=== PATIENT | female | born 1930 | race Caucasian/White ===

== ENCOUNTER 2017-08-12 12:23 | Inpatient (IN) | payer MEDICARE, OTHER ==
[2017-08-12] MEDS: ONDANSETRON 4 MG INJ IV (13:18)
[2017-08-12 13:37] LABS: ADD MAN DIFF? NO
[2017-08-12 13:40] LABS: ABNORMAL IP MESSAGE 1; BASOPHILS % 0.2 % (0.0-2.0); EOSINOPHILS % 0.5 % (0.0-7.0); HEMATOCRIT 34.6 % (37.0-47.0); HEMOGLOBIN 10.6 g/dl (12.0-16.0); LYMPHOCYTES # 0.5 10^3/ul (0.8-2.9); LYMPHOCYTES % 7.8 % (15.0-51.0); MEAN CORPUSCULAR HGB CONC 30.6 g/dl (32.0-37.0); MEAN CORPUSCULAR VOLUME 94.5 fl (82.0-101.0); MEAN PLATELET VOLUME 12.5 fl (7.4-10.4); MONOCYTE # 0.5 10^3/ul (0.3-0.9); MONOCYTES % 7.2 % (0.0-11.0); NEUTROPHIL # 5.4 10^3/ul (1.6-7.5); NEUTROPHILS % 83.8 % (39.0-77.0); PLATELET COUNT 136 10^3/UL (140-415); POSITIVE DIFF @See below; RED BLOOD COUNT 3.66 10^6/ul (4.20-5.40)
[2017-08-12 13:40] LABS: WHITE BLOOD COUNT 6.4 10^3/ul (4.8-10.8)
[2017-08-12 13:56] LABS: ALANINE AMINOTRANSFERASE 27 IU/L (13-69); ALBUMIN 3.6 g/dl (3.3-4.9); ALBUMIN/GLOBULIN RATIO 0.94; ALKALINE PHOSPHATASE 189 IU/L (42-121); ANION GAP 15 (8-16); ASPARTATE AMINO TRANSFERASE 19 IU/L (15-46); BILIRUBIN,INDIRECT 0.7 mg/dl (0-1.1); BILIRUBIN,TOTAL 0.7 mg/dl (0.2-1.3); BLOOD UREA NITROGEN 26 mg/dl (7-20); CALCIUM 8.8 mg/dl (8.4-10.2); CARBON DIOXIDE 20 mmol/L (21-31); CHLORIDE 110 mmol/L (97-110); GLUCOSE 148 mg/dl (70-220); LIPASE 66 U/L (23-300); SODIUM 139 mmol/L (135-144); TOTAL PROTEIN 7.4 g/dl (6.1-8.1)
[2017-08-12 14:01] LABS: INR 1.16; PT RATIO 1.2
[2017-08-12 14:02] LABS: PARTIAL THROMBOPLASTIN TIME 32.1 Sec (25.0-35.0)
[2017-08-12 14:04] LABS: POTASSIUM 6.3 mmol/L (3.5-5.1)
[2017-08-12] MEDS: NA POLYST SULFON 15 GM/60 ML BTL PO (14:15)
[2017-08-12] MEDS ORDERED: DEXTROSE 50% 50 ML SYRINGE IV (14:30)
[2017-08-12] MEDS: DEXTROSE 50% 50 ML SYRINGE IV (14:58)
[2017-08-12] MEDS: NA BICARBONATE 8.4% 50 ML SYG IV (14:58)
[2017-08-12] MEDS: FUROSEMIDE 40 MG TAB PO (15:00)
[2017-08-12] MEDS: SALMETEROL/FLUTICASONE 250/50 INHA INH ×2 (15:00→21:00)
[2017-08-12] MEDS: LINAGLIPTIN 5 MG TABLET PO (15:00)
[2017-08-12] MEDS: AMLODIPINE 5 MG TAB PO (15:00)
[2017-08-12] MEDS: INSULIN REGULAR, HUMAN 100 UNIT/1 ML 3ML VIAL IVP (15:00)
[2017-08-12] MEDS: ENALAPRIL 2.5 MG TAB PO ×2 (15:00→21:00)
[2017-08-12] MEDS: METOPROLOL (XL) 25 MG TAB PO ×2 (15:00→21:00)
[2017-08-12] MEDS ORDERED: GLUCOSE GEL 15 GRAM TUBE BUCCAL (15:30)
[2017-08-12] MEDS ORDERED: GLUCAGON 1 MG INJ IM (15:30)
[2017-08-12] MEDS ORDERED: GLUCOSE GEL 15 GRAM TUBE PO ×2 (15:30)
[2017-08-12] MEDS: LIDOCAINE 1% (MDV) 10 ML INJ (15:58)
[2017-08-12 16:16] LABS: IRON 29 ug/dl (35-150)
[2017-08-12 16:26] LABS: % IRON SATURATION 13 % SAT (22-52); TOTAL IRON BINDING CAPACITY 229 ug/dl (241-421)
[2017-08-12] MEDS: PANTOPRAZOLE 40 MG INJ IV (16:46)
[2017-08-12] MEDS: CEFTRIAXONE 1 GM/50 ML (PMX) 50 ML IVPB (16:46)
[2017-08-12] MEDS: REPAGLINIDE 2 MG TAB PO (17:01)
[2017-08-12] MEDS ORDERED: ONDANSETRON 4 MG INJ IV (18:00)
[2017-08-12] MEDS ORDERED: ACETAMINOPHEN 325 MG TAB PO (18:00)
[2017-08-12 18:45] LABS: FLD MN% 95.5 %; FLD PMN% 4.5 %; FLD RBC 4000 /uL; FLD WBC 155 /cmm
[2017-08-12 18:51] LABS: FLUID AMYLASE < 30 U/L; FLUID TYPE ABDOMINAL FLUID
[2017-08-12] MEDS: SOD CHLORIDE 0.9% 1,000 ML IV (19:00)
[2017-08-12 19:07] LABS: FLD CLARITY SLIGHTLY HAZY
[2017-08-12 19:07] LABS: FLD TYPE PARACENTHESIS
[2017-08-12 19:08] LABS: FLD COLOR YELLOW
[2017-08-12] MEDS: ISOSORBIDE DINITRATE 20 MG TAB PO (21:00)
[2017-08-12] MEDS: ACCU-CHEK XX (21:44)
[2017-08-12] MEDS: ACETAMINOPHEN 500 MG TAB PO (22:20)
[2017-08-13] MEDS: LEVOTHYROXINE 125 MCG TAB PO (06:39)
[2017-08-13] MEDS: ACCU-CHEK XX ×4 (08:00→21:52)
[2017-08-13] MEDS: SALMETEROL/FLUTICASONE 250/50 INHA INH ×2 (09:00→21:00)
[2017-08-13] MEDS: REPAGLINIDE 2 MG TAB PO ×3 (09:16→17:45)
[2017-08-13] MEDS: METOPROLOL (XL) 25 MG TAB PO (09:17)
[2017-08-13] MEDS: LINAGLIPTIN 5 MG TABLET PO (09:17)
[2017-08-13] MEDS: FUROSEMIDE 40 MG TAB PO (09:18)
[2017-08-13] MEDS: ISOSORBIDE DINITRATE 20 MG TAB PO ×3 (09:18→21:00)
[2017-08-13] MEDS: ENALAPRIL 2.5 MG TAB PO ×2 (09:19→21:00)
[2017-08-13] MEDS: AMLODIPINE 5 MG TAB PO (09:19)
[2017-08-13 09:28] LABS: ADD MAN DIFF? NO
[2017-08-13 09:43] LABS: WHITE BLOOD COUNT 4.5 10^3/ul (4.8-10.8)
[2017-08-13 09:43] LABS: ABNORMAL IP MESSAGE 1; BASOPHILS % 0.2 % (0.0-2.0); EOSINOPHILS % 0.4 % (0.0-7.0); HEMATOCRIT 29.3 % (37.0-47.0); HEMOGLOBIN 9.1 g/dl (12.0-16.0); LYMPHOCYTES # 0.3 10^3/ul (0.8-2.9); LYMPHOCYTES % 6.4 % (15.0-51.0); MEAN CORPUSCULAR HGB CONC 31.1 g/dl (32.0-37.0); MEAN CORPUSCULAR VOLUME 93.3 fl (82.0-101.0); MONOCYTE # 0.3 10^3/ul (0.3-0.9); MONOCYTES % 7.3 % (0.0-11.0); NEUTROPHIL # 3.9 10^3/ul (1.6-7.5); NEUTROPHILS % 85.3 % (39.0-77.0); PLATELET COUNT 102 10^3/UL (140-415); RED BLOOD COUNT 3.14 10^6/ul (4.20-5.40); RED CELL DISTRIBUTION WIDTH 16.4 % (11.5-14.5)
[2017-08-13 09:47] LABS: POSITIVE DIFF @See below
[2017-08-13 11:07] LABS: ADD UMIC YES; UR ASCORBIC ACID NEGATIVE (NEGATIVE); UR BACTERIA MODERATE /HPF (NONE SEEN); UR BILIRUBIN (Dip) NEGATIVE (NEGATIVE); UR BLOOD (Dip) 2+ mg/dL (NEGATIVE); UR CLARITY SLIGHTLY CLOUDY (CLEAR); UR COLOR AMBER (YELLOW); UR GLUCOSE (Dip) NEGATIVE (NEGATIVE); UR GRANULAR CAST FEW /HPF (NONE SEEN); UR KETONES (Dip) NEGATIVE (NEGATIVE); UR LEUKOCYTE ESTERASE (Dip) 2+ Leu/ul (NEGATIVE); UR MUCUS FEW /HPF (NONE SEEN); UR NITRITE (Dip) NEGATIVE (NEGATIVE); UR RBC 6 /HPF (0-5); UR SPECIFIC GRAVITY (Dip) 1.014 (1.003-1.030); UR TOTAL PROTEIN (Dip) 2+ mg/dl (NEGATIVE); UR UROBILINOGEN (Dip) 1+ mg/dL (NEGATIVE); UR WBC 39 /HPF (0-5)
[2017-08-13 11:39] LABS: ANION GAP 13 (8-16); BLOOD UREA NITROGEN 29 mg/dl (7-20); CALCIUM 7.8 mg/dl (8.4-10.2); CARBON DIOXIDE 20 mmol/L (21-31); CHLORIDE 108 mmol/L (97-110); CREATININE 1.43 mg/dl (0.44-1.00); GLUCOSE 92 mg/dl (70-220); SODIUM 135 mmol/L (135-144)
[2017-08-13] MEDS: IBUPROFEN 400 MG TAB PO (12:44)
[2017-08-13] MEDS ORDERED: PIPER-TAZO 3.375 GM IV (PMX) 100 ML IVPB (14:00)
[2017-08-13] MEDS: NA POLYST SULFON 15 GM/60 ML BTL PO (14:23)
[2017-08-13] MEDS: ALBUMIN HUMAN 25% 100 ML IV ×3 (15:32→23:52)
[2017-08-13] MEDS: SOD CHLORIDE 0.9% 500 ML IV (15:34)
[2017-08-13] MEDS: PIPER-TAZO 2.25 GM (PMX) 50 ML IVPB (15:43)
[2017-08-13] MEDS: SOD CHLORIDE 0.9% 1,000 ML IV (16:30)
[2017-08-13] MEDS: VANCOMYCIN 1.5 GM in SOD CHLORIDE 0.9% 250 ML IVPB (16:33)
[2017-08-13] MEDS: NA POLYST SULFON 15 GM/60 ML BTL PR (16:36)
[2017-08-13] MEDS: DEXTROSE 50% 50 ML SYRINGE IV ×2 (17:21→22:00)
[2017-08-13] MEDS ORDERED: VANCOMYCIN IV PER PHARMACY XX (18:00)
[2017-08-13] MEDS: NORepinephrine 8MG/250 ML (PMX 250 ML IV (20:20)
[2017-08-13] MEDS: DIPHENHYDRAMINE 25 MG CAP PO (23:12)
[2017-08-14] MEDS: PIPER-TAZO 2.25 GM (PMX) 50 ML IVPB ×2 (00:25→06:55)
[2017-08-14 06:07] LABS: ABNORMAL IP MESSAGE 1; HEMATOCRIT 29.8 % (37.0-47.0); HEMOGLOBIN 9.2 g/dl (12.0-16.0); MEAN CORPUSCULAR HEMOGLOBIN 28.9 pg (29.0-33.0); MEAN CORPUSCULAR HGB CONC 30.9 g/dl (32.0-37.0); MEAN CORPUSCULAR VOLUME 93.7 fl (82.0-101.0); MEAN PLATELET VOLUME 12.9 fl (7.4-10.4); PLATELET COUNT 97 10^3/UL (140-415); RED BLOOD COUNT 3.18 10^6/ul (4.20-5.40); RED CELL DISTRIBUTION WIDTH 15.9 % (11.5-14.5)
[2017-08-14 06:07] LABS: WHITE BLOOD COUNT 1.8 10^3/ul (4.8-10.8)
[2017-08-14 06:13] LABS: ADD MAN DIFF? YES; POSITIVE DIFF @See below
[2017-08-14 06:14] LABS: PATH REVIEW? YES
[2017-08-14 06:41] LABS: AMMONIA < 9 umol/l (9-30); URIC ACID 6.7 mg/dl (3.1-7.9)
[2017-08-14 06:41] LABS: CREATINE KINASE 61 IU/L (23-200)
[2017-08-14 06:44] LABS: ALANINE AMINOTRANSFERASE 22 IU/L (13-69); ALBUMIN 2.9 g/dl (3.3-4.9); ALBUMIN/GLOBULIN RATIO 0.96; ALKALINE PHOSPHATASE 96 IU/L (42-121); ANION GAP 15 (8-16); ASPARTATE AMINO TRANSFERASE 16 IU/L (15-46); BILIRUBIN,INDIRECT 0.2 mg/dl (0-1.1); BILIRUBIN,TOTAL 0.2 mg/dl (0.2-1.3); BLOOD UREA NITROGEN 32 mg/dl (7-20); CALCIUM 8.1 mg/dl (8.4-10.2); CARBON DIOXIDE 20 mmol/L (21-31); CHLORIDE 110 mmol/L (97-110); CREATININE 1.68 mg/dl (0.44-1.00); GLUCOSE 79 mg/dl (70-220); MAGNESIUM 1.8 mg/dl (1.7-2.5); POTASSIUM 5.8 mmol/L (3.5-5.1); SODIUM 139 mmol/L (135-144); TOTAL PROTEIN 5.9 g/dl (6.1-8.1)
[2017-08-14 06:48] LABS: IRON 26 ug/dl (35-150)
[2017-08-14] MEDS: LEVOTHYROXINE 125 MCG TAB PO (06:55)
[2017-08-14] MEDS: PANTOPRAZOLE (EC) 40 MG TAB PO (06:55)
[2017-08-14 06:58] LABS: % IRON SATURATION 16 % SAT (22-52); TOTAL IRON BINDING CAPACITY 158 ug/dl (241-421)
[2017-08-14] MEDS: REPAGLINIDE 2 MG TAB PO ×4 (07:05→17:05)
[2017-08-14] MEDS: ACCU-CHEK XX ×5 (07:30→20:30)
[2017-08-14 07:35] LABS: ANISOCYTOSIS 1+ (0-0); BAND NEUTROPHILS #M 0.5 10^3/ul (0.0-0.6); BAND NEUTROPHILS % (M) 33 % (0-4); BURR CELLS 2+ (0-0); EOSINOPHILS % (M) 5 % (0-7); GIANT THROMBO% (M) 3 % (0-0); LYMPHOCYTES % (M) 5 % (15-51); MONOCYTE #M 0.1 10^3/ul (0.3-0.9); MONOCYTES % (M) 8 % (0-11); PLATELET ESTIMATE DECREASED; POIKILOCYTOSIS 2+ (0-0); SEG NEUT #M 0.9 10^3/ul (1.6-7.5); SEGMENTED NEUTROPHILS (M) % 49 % (39-77)
[2017-08-14] MEDS: ALBUMIN HUMAN 25% 100 ML IV (08:33)
[2017-08-14] MEDS: ISOSORBIDE DINITRATE 20 MG TAB PO (08:34)
[2017-08-14] MEDS: ENALAPRIL 2.5 MG TAB PO ×2 (08:35→21:00)
[2017-08-14] MEDS: AMLODIPINE 5 MG TAB PO (08:35)
[2017-08-14] MEDS: LINAGLIPTIN 5 MG TABLET PO (08:36)
[2017-08-14] MEDS: FUROSEMIDE 40 MG TAB PO (08:36)
[2017-08-14] MEDS: SALMETEROL/FLUTICASONE 250/50 INHA INH ×2 (09:00→20:30)
[2017-08-14] MEDS: LIDOCAINE 1% (MPF) 5 ML VIAL SC (10:00)
[2017-08-14] MEDS: CEFTRIAXONE 1 GM/50 ML (PMX) 50 ML IVPB (12:57)
[2017-08-14] MEDS: NA POLYST SULFON 15 GM/60 ML BTL PO (12:57)
[2017-08-14 13:52] LABS: SODIUM,URINE RANDOM 39 mmol/L (30-90)
[2017-08-14 13:54] LABS: PROTEIN/CREAT RATIO 0.52 RATIO
[2017-08-14] MEDS: LUBIPROSTONE 24 MCG CAP PO ×2 (14:00→20:29)
[2017-08-14] MEDS ORDERED: VANCOMYCIN 500MG/NS (PMX) 100 ML IVPB (16:30)
[2017-08-14] MEDS: DAPTOMYCIN 335 MG in SOD CHLORIDE 0.9% 100 ML IVPB (16:43)
[2017-08-14] MEDS: SOD FERRIC GLUC COMPLX 125 MG in SOD CHLORIDE 0.9% 100 ML IVPB (18:09)
[2017-08-14] MEDS: MEROPENEM 500MG/50 ML (PMX) 50 ML IVPB (20:29)
[2017-08-15] MEDS ORDERED: VANCOMYCIN 1 GM (PMX) 250 ML IVPB (05:30)
[2017-08-15] MEDS: LEVOTHYROXINE 125 MCG TAB PO (06:42)
[2017-08-15] MEDS: PANTOPRAZOLE (EC) 40 MG TAB PO (06:42)
[2017-08-15] MEDS: ACCU-CHEK XX ×4 (07:05→21:00)
[2017-08-15] MEDS: IBUPROFEN 400 MG TAB PO (08:20)
[2017-08-15 08:43] LABS: ADD MAN DIFF? NO
[2017-08-15 08:45] LABS: ABNORMAL IP MESSAGE 1; BASOPHILS % 0.3 % (0.0-2.0); EOSINOPHILS # 0.2 10^3/ul (0.0-0.5); EOSINOPHILS % 6.8 % (0.0-7.0); HEMATOCRIT 30.5 % (37.0-47.0); HEMOGLOBIN 9.3 g/dl (12.0-16.0); LYMPHOCYTES # 0.4 10^3/ul (0.8-2.9); LYMPHOCYTES % 12.1 % (15.0-51.0); MEAN CORPUSCULAR HEMOGLOBIN 28.2 pg (29.0-33.0); MEAN CORPUSCULAR HGB CONC 30.5 g/dl (32.0-37.0); MEAN CORPUSCULAR VOLUME 92.4 fl (82.0-101.0); MEAN PLATELET VOLUME 13.7 fl (7.4-10.4); MONOCYTE # 0.4 10^3/ul (0.3-0.9); MONOCYTES % 13.7 % (0.0-11.0); NEUTROPHIL # 2.1 10^3/ul (1.6-7.5); NEUTROPHILS % 66.5 % (39.0-77.0); PLATELET COUNT 106 10^3/UL (140-415); RED CELL DISTRIBUTION WIDTH 16.3 % (11.5-14.5)
[2017-08-15 08:45] LABS: WHITE BLOOD COUNT 3.2 10^3/ul (4.8-10.8)
[2017-08-15 08:49] LABS: POSITIVE DIFF @See below
[2017-08-15] MEDS: SALMETEROL/FLUTICASONE 250/50 INHA INH ×2 (09:00→21:00)
[2017-08-15] MEDS: ENALAPRIL 2.5 MG TAB PO ×2 (09:00→21:00)
[2017-08-15 09:02] LABS: ANION GAP 14 (8-16); BLOOD UREA NITROGEN 33 mg/dl (7-20); CALCIUM 8.4 mg/dl (8.4-10.2); CARBON DIOXIDE 19 mmol/L (21-31); CHLORIDE 110 mmol/L (97-110); CREATININE 1.65 mg/dl (0.44-1.00); GLUCOSE 138 mg/dl (70-220); POTASSIUM 5.5 mmol/L (3.5-5.1); SODIUM 137 mmol/L (135-144)
[2017-08-15] MEDS: LUBIPROSTONE 24 MCG CAP PO ×2 (09:46→21:56)
[2017-08-15] MEDS: MEROPENEM 500MG/50 ML (PMX) 50 ML IVPB (09:46)
[2017-08-15] MEDS ORDERED: ERTAPENEM SODIUM 1 GM in SOD CHLORIDE 0.9% 100 ML IVPB (12:00)
[2017-08-15] MEDS: ALBUMIN HUMAN 25% 100 ML IV (15:13)
[2017-08-15] MEDS: ERTAPENEM SODIUM 0.5 GM in SOD CHLORIDE 0.9% 100 ML IVPB (16:10)
[2017-08-15] MEDS: SOD FERRIC GLUC COMPLX 125 MG in SOD CHLORIDE 0.9% 100 ML IVPB (18:05)
[2017-08-15] MEDS: NA POLYST SULFON 15 GM/60 ML BTL PO (18:50)
[2017-08-15] MEDS: AMPICILLIN 1 GM/NS (PMX) 50 ML IVPB (21:58)
[2017-08-16] MEDS: IBUPROFEN 400 MG TAB PO ×2 (00:21→20:53)
[2017-08-16 06:11] LABS: WHITE BLOOD COUNT 1.9 10^3/ul (4.8-10.8)
[2017-08-16 06:11] LABS: ABNORMAL IP MESSAGE 1; HEMATOCRIT 25.6 % (37.0-47.0); HEMOGLOBIN 7.9 g/dl (12.0-16.0); MEAN CORPUSCULAR HEMOGLOBIN 28.3 pg (29.0-33.0); MEAN CORPUSCULAR HGB CONC 30.9 g/dl (32.0-37.0); MEAN CORPUSCULAR VOLUME 91.8 fl (82.0-101.0); MEAN PLATELET VOLUME 13.1 fl (7.4-10.4); PLATELET COUNT 81 10^3/UL (140-415); RED BLOOD COUNT 2.79 10^6/ul (4.20-5.40)
[2017-08-16 06:36] LABS: ALANINE AMINOTRANSFERASE 21 IU/L (13-69); ALBUMIN 2.6 g/dl (3.3-4.9); ALBUMIN/GLOBULIN RATIO 0.86; ALKALINE PHOSPHATASE 109 IU/L (42-121); ANION GAP 13 (8-16); ASPARTATE AMINO TRANSFERASE 13 IU/L (15-46); BLOOD UREA NITROGEN 37 mg/dl (7-20); CALCIUM 8.4 mg/dl (8.4-10.2); CARBON DIOXIDE 18 mmol/L (21-31); CHLORIDE 112 mmol/L (97-110); CREATININE 1.73 mg/dl (0.44-1.00); GLUCOSE 54 mg/dl (70-220); POTASSIUM 5.1 mmol/L (3.5-5.1); SODIUM 138 mmol/L (135-144); TOTAL PROTEIN 5.6 g/dl (6.1-8.1)
[2017-08-16] MEDS: PANTOPRAZOLE (EC) 40 MG TAB PO (06:36)
[2017-08-16] MEDS: LEVOTHYROXINE 125 MCG TAB PO (06:36)
[2017-08-16] MEDS: ACCU-CHEK XX ×4 (06:36→20:56)
[2017-08-16 06:56] LABS: ADD MAN DIFF? YES; POSITIVE DIFF @See below
[2017-08-16] MEDS: ENALAPRIL 2.5 MG TAB PO ×2 (08:56→20:37)
[2017-08-16] MEDS: AMPICILLIN 1 GM/NS (PMX) 50 ML IVPB ×2 (08:56→20:53)
[2017-08-16] MEDS: LUBIPROSTONE 24 MCG CAP PO ×2 (08:56→20:53)
[2017-08-16] MEDS: SALMETEROL/FLUTICASONE 250/50 INHA INH ×2 (08:57→20:37)
[2017-08-16 09:04] LABS: ANISOCYTOSIS 1+ (0-0); BAND NEUTROPHILS #M 0.4 10^3/ul (0.0-0.6); BAND NEUTROPHILS % (M) 23 % (0-4); EOSINOPHILS % (M) 2 % (0-7); GIANT THROMBO% (M) 1 % (0-0); LYMPHOCYTES #M 0.3 10^3/ul (0.8-2.9); LYMPHOCYTES % (M) 17 % (15-51); MICROCYTOSIS 1+ (0-0); MONOCYTE #M 0.1 10^3/ul (0.3-0.9); MONOCYTES % (M) 8 % (0-11); PLATELET ESTIMATE DECREASED; POIKILOCYTOSIS 3+ (0-0); POLYCHROMASIA 2+ (0-0); REACTIVE LYMPHOCYTES% (M) 2 % (0-0); SEG NEUT #M 0.9 10^3/ul (1.6-7.5); SEGMENTED NEUTROPHILS (M) % 48 % (39-77); SMUDGE%M 2 % (0-0)
[2017-08-16] MEDS: ERTAPENEM SODIUM 0.5 GM in SOD CHLORIDE 0.9% 100 ML IVPB (13:04)
[2017-08-16] MEDS ORDERED: SOD CHLORIDE 0.9% 500 ML IV (14:00)
[2017-08-16] MEDS: SOD CHLORIDE 0.9% 500 ML IV (14:30)
[2017-08-16] MEDS: ALBUMIN HUMAN 25% 100 ML IV (14:35)
[2017-08-16] MEDS: SOD FERRIC GLUC COMPLX 125 MG in SOD CHLORIDE 0.9% 100 ML IVPB (18:07)
[2017-08-16] MEDS: FUROSEMIDE 20 MG INJ IV (22:34)
[2017-08-17 05:38] LABS: ADD MAN DIFF? NO
[2017-08-17 05:46] LABS: WHITE BLOOD COUNT 2.8 10^3/ul (4.8-10.8)
[2017-08-17 05:46] LABS: ABNORMAL IP MESSAGE 1; BASOPHILS % 0.4 % (0.0-2.0); EOSINOPHILS # 0.1 10^3/ul (0.0-0.5); EOSINOPHILS % 3.6 % (0.0-7.0); HEMOGLOBIN 7.8 g/dl (12.0-16.0); LYMPHOCYTES # 0.5 10^3/ul (0.8-2.9); LYMPHOCYTES % 16.4 % (15.0-51.0); MEAN CORPUSCULAR HGB CONC 31.2 g/dl (32.0-37.0); MEAN CORPUSCULAR VOLUME 92.9 fl (82.0-101.0); MEAN PLATELET VOLUME 12.1 fl (7.4-10.4); MONOCYTE # 0.2 10^3/ul (0.3-0.9); MONOCYTES % 8.5 % (0.0-11.0); NEUTROPHILS % 70.4 % (39.0-77.0); PLATELET COUNT 85 10^3/UL (140-415); RED BLOOD COUNT 2.69 10^6/ul (4.20-5.40); RED CELL DISTRIBUTION WIDTH 15.9 % (11.5-14.5)
[2017-08-17 05:50] LABS: POSITIVE DIFF @See below
[2017-08-17 06:07] LABS: AMMONIA 22 umol/l (9-30)
[2017-08-17 06:13] LABS: ALANINE AMINOTRANSFERASE 17 IU/L (13-69); ALBUMIN 2.6 g/dl (3.3-4.9); ALBUMIN/GLOBULIN RATIO 0.86; ALKALINE PHOSPHATASE 104 IU/L (42-121); ANION GAP 14 (8-16); ASPARTATE AMINO TRANSFERASE 12 IU/L (15-46); BLOOD UREA NITROGEN 38 mg/dl (7-20); CALCIUM 8.4 mg/dl (8.4-10.2); CARBON DIOXIDE 20 mmol/L (21-31); CHLORIDE 112 mmol/L (97-110); CREATININE 1.58 mg/dl (0.44-1.00); GLUCOSE 71 mg/dl (70-220); IRON 77 ug/dl (35-150); SODIUM 141 mmol/L (135-144); TOTAL PROTEIN 5.6 g/dl (6.1-8.1)
[2017-08-17 06:16] LABS: MAGNESIUM 1.8 mg/dl (1.7-2.5)
[2017-08-17] MEDS: PANTOPRAZOLE (EC) 40 MG TAB PO (06:18)
[2017-08-17] MEDS: LEVOTHYROXINE 125 MCG TAB PO (06:18)
[2017-08-17] MEDS: ACCU-CHEK XX ×4 (06:22→21:00)
[2017-08-17 06:23] LABS: % IRON SATURATION 51 % SAT (22-52); TOTAL IRON BINDING CAPACITY 151 ug/dl (241-421)
[2017-08-17] MEDS: AMPICILLIN 1 GM/NS (PMX) 50 ML IVPB ×2 (08:09→20:58)
[2017-08-17] MEDS: SALMETEROL/FLUTICASONE 250/50 INHA INH ×2 (08:11→22:04)
[2017-08-17] MEDS: LUBIPROSTONE 24 MCG CAP PO ×2 (09:19→22:04)
[2017-08-17] MEDS: ENALAPRIL 2.5 MG TAB PO ×2 (10:00→22:04)
[2017-08-17] MEDS: ERTAPENEM SODIUM 0.5 GM in SOD CHLORIDE 0.9% 100 ML IVPB (13:09)
[2017-08-17] MEDS: SOD FERRIC GLUC COMPLX 125 MG in SOD CHLORIDE 0.9% 100 ML IVPB (17:28)
[2017-08-17] MEDS: NYSTATIN 30 GM POWDER BTL TOP (20:58)
[2017-08-17 21:41] LABS: AHG CROSSMATCH 1 1
[2017-08-18] MEDS: PANTOPRAZOLE (EC) 40 MG TAB PO (05:35)
[2017-08-18] MEDS: LEVOTHYROXINE 125 MCG TAB PO (05:35)
[2017-08-18] MEDS: ACCU-CHEK XX ×4 (07:30→21:00)
[2017-08-18] MEDS: NYSTATIN 30 GM POWDER BTL TOP ×2 (09:00→21:00)
[2017-08-18] MEDS: LUBIPROSTONE 24 MCG CAP PO ×2 (09:00→21:00)
[2017-08-18] MEDS: SALMETEROL/FLUTICASONE 250/50 INHA INH ×2 (09:00→21:49)
[2017-08-18] MEDS: ENALAPRIL 2.5 MG TAB PO ×2 (09:00→21:52)
[2017-08-18] MEDS: AMPICILLIN 1 GM/NS (PMX) 50 ML IVPB ×2 (09:01→21:50)
[2017-08-18] MEDS: LIDOCAINE 1% (MDV) 10 ML INJ (11:24)
[2017-08-18] MEDS: ERTAPENEM SODIUM 0.5 GM in SOD CHLORIDE 0.9% 100 ML IVPB (12:45)
[2017-08-18] MEDS: SOD FERRIC GLUC COMPLX 125 MG in SOD CHLORIDE 0.9% 100 ML IVPB (17:30)
[2017-08-19] MEDS: LEVOTHYROXINE 125 MCG TAB PO (06:11)
[2017-08-19] MEDS: PANTOPRAZOLE (EC) 40 MG TAB PO (06:11)
[2017-08-19] MEDS: ACCU-CHEK XX (08:14)
[2017-08-19] MEDS: ENALAPRIL 2.5 MG TAB PO (09:02)
[2017-08-19] MEDS: LUBIPROSTONE 24 MCG CAP PO (09:02)
[2017-08-19] MEDS: SALMETEROL/FLUTICASONE 250/50 INHA INH (09:02)
[2017-08-19] MEDS: NYSTATIN 30 GM POWDER BTL TOP (09:08)
[2017-08-19] MEDS: AMPICILLIN 1 GM/NS (PMX) 50 ML IVPB (09:08)
[2017-08-19] MEDS ORDERED: INFLUENZA VIRUS VACCINE 0.5 ML SYG IM* (10:00)
== END 2017-08-19 12:45 | disposition home or self-care (01) | DRG 871 ==
LOC: MS4 08-17 14:41 → MS2 18:34 → E/R 12:23 → ICU 08-13 19:40 → REC 08-14 10:59 → MS2 17:38 → ICU 08-14 12:39
PROC: 0W9G3ZX Drainage of Peritoneal Cavity, Percutaneous Approach, Diagnostic (ICD-10-PCS; 2017-08-12)
PROC: 30233N1 Transfusion of Nonautologous Red Blood Cells into Peripheral Vein, Percutaneous Approach (ICD-10-PCS; principal; 2017-08-17)
PROC: 0W9G3ZX Drainage of Peritoneal Cavity, Percutaneous Approach, Diagnostic (ICD-10-PCS; 2017-08-18)
DX: A41.9 Sepsis, unspecified organism (principal); R65.21 Severe sepsis with septic shock; K65.2 Spontaneous bacterial peritonitis; N39.0 Urinary tract infection, site not specified; K76.6 Portal hypertension; R64 Cachexia; I13.0 Hypertensive heart and chronic kidney disease with heart failure and stage 1 through stage 4 chronic kidney disease, or unspecified chronic kidney disease; I50.32 Chronic diastolic (congestive) heart failure; N17.9 Acute kidney failure, unspecified; D61.818 Other pancytopenia; K56.0 Paralytic ileus; E11.649 Type 2 diabetes mellitus with hypoglycemia without coma; R32 Unspecified urinary incontinence; R31.9 Hematuria, unspecified; E66.01 Morbid (severe) obesity due to excess calories; E03.9 Hypothyroidism, unspecified; E78.00 Pure hypercholesterolemia, unspecified; E87.5 Hyperkalemia; E11.21 Type 2 diabetes mellitus with diabetic nephropathy; E11.22 Type 2 diabetes mellitus with diabetic chronic kidney disease; E11.51 Type 2 diabetes mellitus with diabetic peripheral angiopathy without gangrene; D63.1 Anemia in chronic kidney disease; H16.429 Pannus (corneal), unspecified eye; K59.00 Constipation, unspecified; K70.31 Alcoholic cirrhosis of liver with ascites; R15.9 Full incontinence of feces; K21.9 Gastro-esophageal reflux disease without esophagitis; I25.10 Atherosclerotic heart disease of native coronary artery without angina pectoris; I49.5 Sick sinus syndrome; I48.2 Chronic atrial fibrillation; I73.9 Peripheral vascular disease, unspecified; I07.1 Rheumatic tricuspid insufficiency; N18.9 Chronic kidney disease, unspecified; D63.8 Anemia in other chronic diseases classified elsewhere; B96.20 Unspecified Escherichia coli [E. coli] as the cause of diseases classified elsewhere; L89.152 Pressure ulcer of sacral region, stage 2; R41.0 Disorientation, unspecified; R53.81 Other malaise; Z68.32 Body mass index [BMI] 32.0-32.9, adult; Z95.1 Presence of aortocoronary bypass graft; Z95.2 Presence of prosthetic heart valve; Z95.0 Presence of cardiac pacemaker; Z87.11 Personal history of peptic ulcer disease; Z90.49 Acquired absence of other specified parts of digestive tract; R21 Rash and other nonspecific skin eruption; Z98.890 Other specified postprocedural states
CPT/HCPCS: 36415; 36430; 71045; 74176; 76775; 80048; 80053; 81001; 81003; 82042; 82140; 82150; 82550; 82570; 82962; 83540; 83690; 83735; 83986; 84300; 84443; 84560; 85025; 85610; 85730; 86850; 86870; 86900; 86901; 86920; 87040; 87070; 87081; 87086; 87102; 87116; 87118; 89051; 89190; 90686; 96374; 96375; 99217; 99285-25

== ENCOUNTER 2017-11-24 22:05 | Observation (INO) | payer MEDICARE, OTHER ==
[2017-11-24 22:50] LABS: ADD MAN DIFF? NO
[2017-11-24 22:53] LABS: ABNORMAL IP MESSAGE 1; BASOPHILS % 0.3 % (0.0-2.0); EOSINOPHILS # 0.1 10^3/ul (0.0-0.5); EOSINOPHILS % 3.1 % (0.0-7.0); HEMATOCRIT 25.7 % (37.0-47.0); HEMOGLOBIN 7.5 g/dl (12.0-16.0); LYMPHOCYTES # 0.6 10^3/ul (0.8-2.9); LYMPHOCYTES % 14.4 % (15.0-51.0); MEAN CORPUSCULAR HEMOGLOBIN 30.2 pg (29.0-33.0); MEAN CORPUSCULAR HGB CONC 29.2 g/dl (32.0-37.0); MEAN CORPUSCULAR VOLUME 103.6 fl (82.0-101.0); MEAN PLATELET VOLUME 11.8 fl (7.4-10.4); MONOCYTE # 0.3 10^3/ul (0.3-0.9); MONOCYTES % 6.5 % (0.0-11.0); NEUTROPHIL # 2.9 10^3/ul (1.6-7.5); NEUTROPHILS % 75.4 % (39.0-77.0); PLATELET COUNT 117 10^3/UL (140-415); RED BLOOD COUNT 2.48 10^6/ul (4.20-5.40); RED CELL DISTRIBUTION WIDTH 14.7 % (11.5-14.5)
[2017-11-24 22:53] LABS: WHITE BLOOD COUNT 3.8 10^3/ul (4.8-10.8)
[2017-11-24 22:56] LABS: POSITIVE DIFF @See below
[2017-11-24 23:10] LABS: LACTIC ACID 0.8 mmol/L (0.5-2.0)
[2017-11-24 23:12] LABS: ALANINE AMINOTRANSFERASE 23 IU/L (13-69); ALBUMIN 3.4 g/dl (3.3-4.9); ALBUMIN/GLOBULIN RATIO 0.85; ALKALINE PHOSPHATASE 143 IU/L (42-121); ANION GAP 11 (8-16); ASPARTATE AMINO TRANSFERASE 16 IU/L (15-46); BILIRUBIN,INDIRECT 0.2 mg/dl (0-1.1); BILIRUBIN,TOTAL 0.2 mg/dl (0.2-1.3); BLOOD UREA NITROGEN 32 mg/dl (7-20); CALCIUM 8.8 mg/dl (8.4-10.2); CARBON DIOXIDE 16 mmol/L (21-31); CHLORIDE 119 mmol/L (97-110); CREATININE 1.41 mg/dl (0.44-1.00); GLUCOSE 71 mg/dl (70-220); INR 1.15; POTASSIUM 5.9 mmol/L (3.5-5.1); PROTIME 14.9 Sec (11.9-14.9); PT RATIO 1.2; SODIUM 140 mmol/L (135-144); TOTAL PROTEIN 7.4 g/dl (6.1-8.1)
[2017-11-24 23:13] LABS: PARTIAL THROMBOPLASTIN TIME 29.6 Sec (25.0-35.0)
[2017-11-24 23:23] LABS: TROPONIN-I 0.019 ng/ml (0.000-0.120)
[2017-11-25 00:57] LABS: LACTIC ACID 0.6 mmol/L (0.5-2.0)
[2017-11-25 03:27] LABS: ADD UMIC YES; UR ASCORBIC ACID NEGATIVE (NEGATIVE); UR BACTERIA FEW /HPF (NONE SEEN); UR BILIRUBIN (Dip) NEGATIVE (NEGATIVE); UR BLOOD (Dip) 2+ mg/dL (NEGATIVE); UR CLARITY CLEAR (CLEAR); UR COLOR YELLOW (YELLOW); UR GLUCOSE (Dip) NEGATIVE (NEGATIVE); UR KETONES (Dip) NEGATIVE (NEGATIVE); UR LEUKOCYTE ESTERASE (Dip) 1+ Leu/ul (NEGATIVE); UR NITRITE (Dip) NEGATIVE (NEGATIVE); UR RBC 2 /HPF (0-5); UR SPECIFIC GRAVITY (Dip) 1.009 (1.003-1.030); UR SQUAMOUS EPITHELIAL CELL FEW /HPF (FEW); UR TOTAL PROTEIN (Dip) NEGATIVE (NEGATIVE); UR UROBILINOGEN (Dip) NEGATIVE (NEGATIVE); UR WBC 2 /HPF (0-5)
[2017-11-25 06:13] LABS: LACTIC ACID 0.7 mmol/L (0.5-2.0)
[2017-11-25] MEDS ORDERED: ENALAPRIL 2.5 MG TAB PO (14:00)
[2017-11-25] MEDS: LIDOCAINE 1% (MDV) 10 ML INJ (15:01)
[2017-11-25] MEDS: PANTOPRAZOLE 40 MG INJ IV (16:14)
[2017-11-25] MEDS: FUROSEMIDE 20 MG TAB PO (16:15)
[2017-11-25] MEDS: METOPROLOL (XL) 25 MG TAB PO ×2 (16:15→21:00)
[2017-11-25] MEDS: ALBUMIN HUMAN 25% 50 ML IV ×2 (16:19→22:38)
[2017-11-25] MEDS: AMLODIPINE 2.5 MG TAB PO ×2 (17:39→21:25)
[2017-11-25] MEDS: ENALAPRIL 5 MG TAB PO ×2 (17:40→23:46)
[2017-11-25] MEDS: NA POLYST SULFON 15 GM/60 ML BTL PR (21:26)
[2017-11-25] MEDS: ISOSORBIDE DINITRATE 20 MG TAB PO (22:45)
[2017-11-26] MEDS: ALBUMIN HUMAN 25% 50 ML IV (05:59)
[2017-11-26] MEDS: PANTOPRAZOLE 40 MG INJ IV (05:59)
[2017-11-26] MEDS: LEVOTHYROXINE 125 MCG TAB PO (06:17)
[2017-11-26 06:51] LABS: ADD MAN DIFF? NO
[2017-11-26 07:01] LABS: ABNORMAL IP MESSAGE 1; BASOPHILS % 0.4 % (0.0-2.0); EOSINOPHILS # 0.1 10^3/ul (0.0-0.5); EOSINOPHILS % 4.1 % (0.0-7.0); HEMATOCRIT 25.9 % (37.0-47.0); HEMOGLOBIN 7.6 g/dl (12.0-16.0); LYMPHOCYTES # 0.4 10^3/ul (0.8-2.9); LYMPHOCYTES % 16.4 % (15.0-51.0); MEAN CORPUSCULAR HGB CONC 29.3 g/dl (32.0-37.0); MEAN CORPUSCULAR VOLUME 102.4 fl (82.0-101.0); MEAN PLATELET VOLUME 11.5 fl (7.4-10.4); MONOCYTE # 0.2 10^3/ul (0.3-0.9); NEUTROPHIL # 1.9 10^3/ul (1.6-7.5); NEUTROPHILS % 72.4 % (39.0-77.0); PLATELET COUNT 102 10^3/UL (140-415); RED BLOOD COUNT 2.53 10^6/ul (4.20-5.40)
[2017-11-26 07:01] LABS: WHITE BLOOD COUNT 2.7 10^3/ul (4.8-10.8)
[2017-11-26 07:08] LABS: POSITIVE DIFF @See below
[2017-11-26 07:21] LABS: ANION GAP 14 (8-16); BLOOD UREA NITROGEN 30 mg/dl (7-20); CALCIUM 8.7 mg/dl (8.4-10.2); CARBON DIOXIDE 18 mmol/L (21-31); CHLORIDE 118 mmol/L (97-110); CREATININE 1.36 mg/dl (0.44-1.00); GLUCOSE 83 mg/dl (70-220); SODIUM 144 mmol/L (135-144)
[2017-11-26] MEDS ORDERED: NA POLYST SULFON 15 GM/60 ML BTL PO (09:00)
[2017-11-26] MEDS: ISOSORBIDE DINITRATE 20 MG TAB PO ×3 (09:00→20:18)
[2017-11-26] MEDS: METOPROLOL (XL) 25 MG TAB PO ×2 (09:00→20:18)
[2017-11-26] MEDS: NA POLYST SULFON 15 GM/60 ML BTL PO (09:00)
[2017-11-26] MEDS: FUROSEMIDE 20 MG TAB PO (09:02)
[2017-11-26] MEDS: ENALAPRIL 5 MG TAB PO (09:04)
[2017-11-26] MEDS: NA POLYST SULFON 15 GM/60 ML BTL PR ×3 (12:48→23:54)
[2017-11-26 13:30] LABS: ANION GAP 16 (8-16); BLOOD UREA NITROGEN 28 mg/dl (7-20); CALCIUM 8.8 mg/dl (8.4-10.2); CARBON DIOXIDE 17 mmol/L (21-31); CHLORIDE 116 mmol/L (97-110); CREATININE 1.39 mg/dl (0.44-1.00); GLUCOSE 119 mg/dl (70-220); SODIUM 143 mmol/L (135-144)
[2017-11-26 13:48] LABS: POTASSIUM 5.8 mmol/L (3.5-5.1)
[2017-11-26] MEDS: LIDOCAINE 1% (MDV) 10 ML INJ (15:00)
[2017-11-26 15:33] LABS: Arterial Base Excess -8.7 mmol/L (-3.0-3); Arterial Blood Gas Oxygen Sat 96.8 mmHG (95.0-100.0); Arterial COHb 0.4 % (0.0-3.0); Arterial Fraction of Oxyhgb 96.2 % (93.0-99.0); Arterial HCO3 15.9 mmol/L (22.0-26.0); Arterial MetHb 0.2 % (0.0-1.5); Arterial Total Hemglobin 8.8 g/dl (12.0-18.0); Arterial pCO2 29.8 mmhg (35-45); MODE ROOM AIR; Site Right Brachial
[2017-11-26] MEDS ORDERED: NA POLYST SULFON 15 GM/60 ML BTL PR (17:30)
[2017-11-26] MEDS: INSULIN ASPART [NOVOLOG] 3 ML PEN SC (17:35)
[2017-11-26] MEDS ORDERED: SODIUM BICARBONATE (IV ADD) 150 MEQ in DEXTROSE 5% 850 ML IV (18:00)
[2017-11-26] MEDS ORDERED: GLUCAGON 1 MG INJ IM (18:00)
[2017-11-26] MEDS ORDERED: GLUCOSE GEL 15 GRAM TUBE BUCCAL (18:00)
[2017-11-26] MEDS ORDERED: GLUCOSE GEL 15 GRAM TUBE PO ×2 (18:00)
[2017-11-26] MEDS ORDERED: DEXTROSE 50% 50 ML SYRINGE IV ×2 (18:00)
[2017-11-26] MEDS: SODIUM BICARBONATE (IV ADD) 150 MEQ in DEXTROSE 5% 850 ML IV (22:07)
[2017-11-26 22:51] LABS: POTASSIUM 5.6 mmol/L (3.5-5.1)
[2017-11-27] MEDS: ACCU-CHEK XX (01:22)
[2017-11-27 06:06] LABS: ADD MAN DIFF? NO
[2017-11-27 06:10] LABS: WHITE BLOOD COUNT 2.4 10^3/ul (4.8-10.8)
[2017-11-27 06:10] LABS: ABNORMAL IP MESSAGE 1; EOSINOPHILS # 0.1 10^3/ul (0.0-0.5); EOSINOPHILS % 3.3 % (0.0-7.0); HEMATOCRIT 23.6 % (37.0-47.0); LYMPHOCYTES # 0.4 10^3/ul (0.8-2.9); LYMPHOCYTES % 17.3 % (15.0-51.0); MEAN CORPUSCULAR HGB CONC 29.2 g/dl (32.0-37.0); MEAN CORPUSCULAR VOLUME 102.6 fl (82.0-101.0); MEAN PLATELET VOLUME 12.2 fl (7.4-10.4); MONOCYTE # 0.2 10^3/ul (0.3-0.9); MONOCYTES % 7.4 % (0.0-11.0); NEUTROPHIL # 1.7 10^3/ul (1.6-7.5); NEUTROPHILS % 71.6 % (39.0-77.0); PLATELET COUNT 96 10^3/UL (140-415)
[2017-11-27 06:12] LABS: POSITIVE DIFF @See below
[2017-11-27 06:15] LABS: HEMOGLOBIN 6.9 g/dl (12.0-16.0)
[2017-11-27 06:30] LABS: AMMONIA 11 umol/l (9-30)
[2017-11-27] MEDS: PANTOPRAZOLE 40 MG INJ IV (06:36)
[2017-11-27] MEDS: LEVOTHYROXINE 125 MCG TAB PO (06:36)
[2017-11-27 06:39] LABS: IRON 26 ug/dl (35-150)
[2017-11-27 06:45] LABS: ANION GAP 9 (8-16); BLOOD UREA NITROGEN 31 mg/dl (7-20); CALCIUM 8.3 mg/dl (8.4-10.2); CARBON DIOXIDE 22 mmol/L (21-31); CHLORIDE 118 mmol/L (97-110); CREATININE 1.35 mg/dl (0.44-1.00); GLUCOSE 165 mg/dl (70-220); MAGNESIUM 1.8 mg/dl (1.7-2.5); PHOSPHORUS 4.3 mg/dl (2.5-4.9); POTASSIUM 5.3 mmol/L (3.5-5.1); SODIUM 144 mmol/L (135-144)
[2017-11-27 06:48] LABS: % IRON SATURATION 14 % SAT (22-52); TOTAL IRON BINDING CAPACITY 189 ug/dl (241-421)
[2017-11-27] MEDS: INSULIN ASPART [NOVOLOG] 3 ML PEN SC ×3 (08:18→17:28)
[2017-11-27] MEDS: ISOSORBIDE DINITRATE 20 MG TAB PO ×2 (08:19→13:57)
[2017-11-27] MEDS: METOPROLOL (XL) 25 MG TAB PO (08:19)
[2017-11-27] MEDS: FUROSEMIDE 40 MG TAB PO (08:26)
[2017-11-27 08:33] LABS: ADD UMIC YES; UR ASCORBIC ACID NEGATIVE (NEGATIVE); UR BACTERIA FEW /HPF (NONE SEEN); UR BILIRUBIN (Dip) NEGATIVE (NEGATIVE); UR BLOOD (Dip) NEGATIVE (NEGATIVE); UR CLARITY CLEAR (CLEAR); UR COLOR YELLOW (YELLOW); UR GLUCOSE (Dip) NEGATIVE (NEGATIVE); UR KETONES (Dip) NEGATIVE (NEGATIVE); UR LEUKOCYTE ESTERASE (Dip) TRACE Leu/ul (NEGATIVE); UR NITRITE (Dip) NEGATIVE (NEGATIVE); UR RBC 1 /HPF (0-5); UR SQUAMOUS EPITHELIAL CELL FEW /HPF (FEW); UR TOTAL PROTEIN (Dip) NEGATIVE (NEGATIVE); UR UROBILINOGEN (Dip) NEGATIVE (NEGATIVE); UR WBC 8 /HPF (0-5)
[2017-11-27 08:56] LABS: SODIUM,URINE RANDOM 111 mmol/L (30-90)
[2017-11-27 10:15] LABS: AHG CROSSMATCH 1 1
[2017-11-27] MEDS: ALBUMIN HUMAN 25% 100 ML IV ×4 (14:30→17:57)
[2017-11-27 15:10] LABS: POTASSIUM 4.8 mmol/L (3.5-5.1)
[2017-11-27 15:12] LABS: AMMONIA < 9 umol/l (9-30)
[2017-11-27] MEDS ORDERED: SOD FERRIC GLUC COMPLX 125 MG in SOD CHLORIDE 0.9% 100 ML IVPB (17:00)
== END 2017-11-27 20:17 | disposition home or self-care (01) ==
LOC: PP2 11-25 19:45 → E/R 22:05 → PP2 11-25 00:55
DX: K74.69 Other cirrhosis of liver (principal); R18.8 Other ascites; E87.5 Hyperkalemia; E11.649 Type 2 diabetes mellitus with hypoglycemia without coma; K21.9 Gastro-esophageal reflux disease without esophagitis; R32 Unspecified urinary incontinence; Z95.0 Presence of cardiac pacemaker; E66.01 Morbid (severe) obesity due to excess calories; Z68.34 Body mass index [BMI] 34.0-34.9, adult; N39.0 Urinary tract infection, site not specified; R31.9 Hematuria, unspecified; I10 Essential (primary) hypertension; D63.8 Anemia in other chronic diseases classified elsewhere; K76.6 Portal hypertension; I50.9 Heart failure, unspecified; I25.10 Atherosclerotic heart disease of native coronary artery without angina pectoris
CPT/HCPCS: 36415; 36430; 36600; 71045; 80048; 80053; 81001; 82140; 82533; 82728; 82803; 82962; 83540; 83605; 83735; 84100; 84132; 84300; 84484; 85025; 85610; 85730; 86850; 86870; 86900; 86901; 86920; 87040; 87086; 93005; 99285-25; G0378